=== PATIENT | female | born 1995 | race Hispanic/Latino ===

== ENCOUNTER 2024-07-01 14:57 | Emergency (ER) | payer OTHER, SELFPAY ==
[2024-07-01] MEDS: TORADOL 30 MG IM (15:33)
--- NOTE | 2024-07-01 15:43 | ED.GENMED ---
History of Present Illness
General
Chief Complaint: Musculo-Skeletal Complaint
Source: patient
Exam Limitations: none
Time Seen by Provider: 07/01/24 15:19
History of Present Illness
History of Present Illness:
See MDM
Past History
Past History
ED Past Medical History: None
ED Past Surgical History:
Patient has exhibited threatening behavior?: No
Social History
Tobacco: Non-smoker
Alcohol: None
Drug: None
Personal:
Living: with family
Phy Exam
Physical Exam
Physical Exam:
See MDM
Course
Orders/Labs/Results
Orders:
Orders
07/01/24 15:02
CR Ankle - Right Min 3 Views * Urgent
Comment:
Reason For Exam: fall, pain
CR Foot - Right Min 3 Views Urgent
Comment:
Reason For Exam: fall, pain
CR Wrist - Right Min 3 Views Urgent
Comment:
Reason For Exam: fall, pain
07/01/24 15:24
Ketorolac [Toradol] 30 mg IM NOW STA
MDM/Problems Addressed
Differential Diagnosis Includes:
HPI and MDM Narrative:
29-year-old female presenting for evaluation of right ankle and right wrist pain. Patient tripped on the steps while she was holding her baby. She protected her baby and took the brunt of the fall. She is right-hand dominant. She denies numbness
or tingling or weakness
On exam, patient does have tenderness to the distal right radius and along the scaphoid. There is also tenderness to right lateral malleolus. Will obtain x-rays
Physical exam
General: Well appearing and non-toxic
HEENT: protecting airway
Neck: appears supple
CV: No evidence of cyanosis
Resp: No accessory muscle use
Abd: Non-distended
Extremities: Swelling and tenderness to distal right radius. Mild tenderness to right lateral malleolus. Both extremities neurovascularly intact. Decreased muscle strength secondary to pain
Neuro: alert
Psych: Normal affect
Skin: Intact
Problems Addressed including Acute and Chronic Conditions affecting care:
1. Right wrist injury
Acuity: acute
Prognosis: stable
Details: Will obtain x-rays to rule out fracture. Given the mild tenderness over the scaphoid, will place in splint regardless
2. Right ankle injury
Acuity: acute
Prognosis: stable
Details: Will obtain x-rays but discussed otherwise sprain
Updates
Although radiology indicated no acute fractures, will treat as possible compression fracture given the point tenderness of the wrist. Will place in a volar Velcro splint and discussed follow-up with Ortho
Differential Diagnosis (but not limited to): Scaphoid fracture, distal radius fracture, ankle
Testing considered: Tib-fib x-ray
Drug therapy (if applicable): OTC meds, please see d/c instruction regarding Rx drugs
Amount and/or Complexity of Data Reviewed
Clinical info obtained from: Patient
External data reviewed: N/A
Labs I independently reviewed (but not limited to): N/A
Radiology: X-ray independently reviewed: Questionable compression fraction of distal right radius
Pulse Ox: not hypoxic
EKG independently reviewed: N/A
Engineering Professionals: N/A
Critical Care: N/A
Risk of Complication:
Social Determinants of health: Good social support
Discussed with other providers: N/A
Escalation of Care includes Admit/Obs: After being observed in the Emergency Department, pt stable for discharge.
Occasional wrong word or 'sound a like' substitutions may have occurred due to the inherent limitations of voice recognition software. Read the chart carefully and recognize, using context, where substitutions have occurred.
*Critical Care Note
Total Time (30-74mins, 75-104mins- exclusive of procedures): Not Applicable
ED Attending Note
-
Portions of this chart may have been created with voice recognition software.� Occasional wrong word or��sound alike� substitutions may have occurred due to the inherent limitations of voice recognition software.
Discharge Plan
Departure
Patient Disposition: Home (Routine Discharge)
Date of Disposition: 07/01/24
Time of Disposition: 16:10
Patient with high blood pressure during this ER visit?: No
Discharge Problem:
Contusion of right wrist
Prescriptions:
No Action
oxycodone-acetaminophen 5-325 mg Tablet
1 tab PO Q4HPRN PRN (Reason: moderate pain) Qty: 12 0RF
ferrous sulfate [FeroSul] 325 mg (65 mg iron) Tablet
325 mg PO DAILY Qty: 30 0RF
ibuprofen 600 mg Tablet
600 mg PO Q6HPRN PRN (Reason: cramps) Qty: 30 0RF
Referrals:
NONE,* [Family Provider] -
Trell Timmons MD [Active] -
Activity Restrictions/Additional Instructions:
Although the x-rays were officially read as normal, there is always the possibility of missing a very small compression fracture of your wrist. If your symptoms persist, please call to make an appointment with the orthopedist. Please use the
splint for comfort.
Please return for any worsening symptoms.
You may return at any time if you have further concerns.
Please follow up with your doctor at the first available appointment, preferably this week.
Thank you for choosing [facility].
Interventions
Interventions:
*Risk Screen - Suicide Last Done: 07/01/24 14:58
*General Assessment Last Done: 07/01/24 14:58
*ED COVID-19 Vaccine History Last Done: 07/01/24 14:58
Discharge Date and Time
Print Language: FAROESE
[2024-07-01 16:19] VITALS: BP 118/69
== END 2024-07-01 17:00 | disposition home or self-care (01) ==
LOC: EMR 14:57
PROVIDERS: EMERGENCY PHYSICIAN Student in an Organized Health Care Education/Training Program
DX: S60.211A Contusion of right wrist, initial encounter (principal); W18.40XA Slipping, tripping and stumbling without falling, unspecified, initial encounter
CPT/HCPCS: 99283; 96372; 73110; 73610; 73630